=== PATIENT | male | born 1960 | race Caucasian/White ===

== ENCOUNTER → 2018-09-28 09:14 | Day surgery (SDC) | payer BC, OTHER ==
[~2018-09-28 09:14] MED LIST: Buffered Lidocaine 1% SYRIN* 1 ML/SYRINGE INTRADERM ONE; Bupivacaine 0.25% W/EPI* 10 ML SDV ONE; Bupivacaine 0.5% W/EPI SDV* 30 ML VIAL ONE; Dexamethasone IV* 4 MG/ML 1 ML (4 MG) IV SLOW PU ONE; Dexamethasone IV* 4 MG/ML 1 ML (4 MG) ONE; Famotidine IV* 10 MG/ML 2 ML (20 mg) IV ONE; Famotidine IV* 10 MG/ML 2 ML (20 mg) ONE; Ketorolac INJ* 30 MG/ML 1 ML VIAL ONE; Lactated Ringers 1000 ML Bag* 1,000 ML IV SCH; Lidocaine 1% INJ* 10 MG/ML 30 ML SDV ONE; Midazolam* 1 MG/ML 5 ML VIAL (5 MG) ONE; Naloxone* 0.4 MG/ML 1 ML VIAL IV PRN; Ondansetron INJ* 2 MG/ML VIAL ONE; Propofol* 10 MG/ML 20 ML BTL ONE; ceFAZolin 2 GM PREMIX in ORs 2 GM/50 ML BAG IVPB ONE; fentaNYL* 50 MCG/ML 2 ML VIAL (100 MCG VIAL) ONE
--- NOTE | 2018-09-28 12:17 | OP ---
CC: Dr. Slick Mckeon; Mireille Jaimes NP OPERATIVE REPORT: DATE OF OPERATION: 09/28/18 DATE OF : 58 SURGEON: Slick Mckeon MD MEDICAL SECRETARY: None. ANESTHESIA: LMAC anesthesia. ANESTHESIOLOGIST: Dr. Loco. PRE-OP DIAGNOSIS: Umbilical hernia. POST-OP DIAGNOSIS: Umbilical hernia. OPERATIVE PROCEDURE: Open repair of umbilical hernia with mesh. DESCRIPTION OF PROCEDURE: The patient was supine on the operating room table. After adequate intrave nous sedation, compression stockings, Valdo Hugger warmer, and intravenous antibiotics, the abdomen wa s prepped with antiseptic, draped in a sterile fashion. Local infiltrative anesthesia was administer ed. Supraumbilical curvilinear incision approximately 2.5 cm was created and carried down to the her nayeli, which was dissected free and reduced. The hernia defect was just about 2 cm across and the prep eritoneal plane was developed and a 4 cm underlay patch was sutured up in 4 quadrants and the fascia was closed over top. The umbilical skin was tacked back down with 0 Vicryl and the adipose with 3-0 Vicryl and skin with 5- 0 Vicryl followed by Steri-Strips. He tolerated the procedure well, was awak ened and brought to Recovery in good condition. No complications. No drains. No pathologic specime ns. Sponge and instrument counts were correct. Estimated blood loss is 20 mL. [id number]/[facility] #: [id number]
[2018-09-28 12:44] VITALS: BP 131/80
== END | disposition home or self-care (01) ==
LOC: OR 09:14
PROVIDERS: ATTEND Surgery
DX: K42.9 Umbilical hernia without obstruction or gangrene (principal)
CPT/HCPCS: C1781; J0690; J1100; J1885; J2250; J2405; J2704; J3010

== ENCOUNTER 2019-04-16 20:10 | Emergency (ER) | payer BC, OTHER ==
[2019-04-16 20:23] VITALS: BP 146/86
[2019-04-16] MEDS ORDERED: Amoxicillin/Clavulanate TAB* 875 MG PO ONE (20:29)
[2019-04-16] MEDS ORDERED: Tetan/Diph/Pertus SYR(Tdap)* 0.5 ML SYR(BOOSTRIX) use SYR IM ONE (20:29)
--- NOTE | 2019-04-16 20:30 | UC ---
Skin Complaint HPI - HPI Summary HPI Summary: 58 yo male presents with RIGHT hand puncture wound. He tells me that he is a li and around noon today he was taking down a piece of board that had nails sticking out of it and one of the nail punctured his right hand. He removed it in one piece. Since that time has had swelling and increased pain. He believes his last tetanus shot was 9 or 10 years ago. Denies fever. He also tells me about a wound on the bottom of his right foot. He had a wound and blister here many months ago that healed into a callus. Since healing, he has some tenderness to the area with weight bearing. Has not tried anything OTC for this. - History of Current Complaint Chief Complaint: UCWounds Time Seen by Provider: 04/16/19 20:18 Stated Complaint: PUNCTURE WOUND Hx Obtained From: Patient Onset/Duration: Gradual Onset Onset Severity: Mild Current Severity: Moderate Pain Intensity: 6 Pain Scale Used: 0-10 Numeric - Allergy/Home Medications Allergies/Adverse Reactions: Allergies Allergy/AdvReac Type Severity Reaction Status Date / Time No Known Allergies Allergy Verified 04/16/19 20:23 PMH/Surg Hx/FS Hx/Imm Hx - Additional Past Medical History Additional PMH: None - Surgical History Surgical History: None Surgery Procedure, Year, and Place: 2006 RIGHT ACL repair. RIGHT KNEE ARTHROSCOPIC. T&A AGE 3 - Family History Known Family History: Positive: Non-Contributory - Social History Lives: With Family Alcohol Use: None Substance Use Type: None Smoking Status (MU): Never Smoked Tobacco Have You Smoked in the Last Year: No - Immunization History Most Recent Tetanus Shot: will need Review of Systems All Other Systems Reviewed And Are Negative: No Constitutional: Positive: Negative Skin: Positive: Other - Puncture wound right hand Respiratory: Positive: Negative Cardiovascular: Positive: Negative Neurovascular: Positive: Negative Musculoskeletal: Positive: Negative Neurological: Positive: Negative Psychological: Positive: Negative Physical Exam - Summary Physical Exam Summary: GENERAL: NAD. WDWN. No pain distress. SKIN: RIGHT HAND: proximal thenar region with 2mm puncture wound. Moderate edema about thenar. Slight erythema and tenderness. No streaking or drainage. RIGHT FOOT: on the foot pad there is a 2.0cm callus that is mildly TTP. No open wound or erythema. No abscess or FB appreciated NECK: Supple. Nontender. No lymphadenopathy. CHEST: No accessory muscle use. Breathing comfortably and in no distress. CV: Pulses intact. Cap refill <2seconds MSK: FROM at right wrist and thumb NEURO: Alert. PSYCH: Age appropriate behavior. Triage Information Reviewed: Yes Vital Signs: Initial Vital Signs Temp 100 F 04/16/19 20:18 Pulse 102 04/16/19 20:18 Resp 16 04/16/19 20:18 BP 146/86 04/16/19 20:18 Pulse Ox 97 04/16/19 20:18 Vital Signs Reviewed: Yes Course/Dx - Course Course Of Treatment: 1) Puncture wound right hand. tdap updated today. Will place him on augmentin. Advised to return if he develops a fever, increased pain/swelling, or streaking. -- Apply ice and take tylenol for discomfort 2) Callus to right plantar aspect foot. I suspect the depth the callus is the cause of his discomfort when weight bearing. Advised to try new footwear or OTC callus pads. Will also refer him to podiatry if his discomfort continues. - Diagnoses Provider Diagnosis: Puncture wound of right hand, Callus of foot Discharge ED - Sign-Out/Discharge Documenting (check all that apply): Patient Departure All imaging exams completed and their final reports reviewed: No Studies - Discharge Plan Condition: Stable Disposition: HOME Prescriptions: Amoxicillin/Clavulanate TAB* [Augmentin TAB 875*] 875 mg PO BID #14 tab Patient Education Materials: Puncture Wound (ED) Referrals: Mireille Jaimes [Primary Care Provider] - Aleksandr Pfeiffer DPM [Doctor of Podiatric Medicine] - As Soon As Possible Additional Instructions: If you develop a fever, increased redness/pain, streaking up your forearm, shortness of breath, chest pain, new or worsening symptoms - please call your PCP or go to the ED immediately. Your blood pressure was high at todays visit. Please see your primary provider within 4 weeks for recheck and re-evaluation. Your tetanus shot was updated today. I recommend that you call podiatry at the number below to schedule an appointment for further treatment regarding your foot sore - Billing Disposition and Condition Condition: STABLE Disposition: Home
== END 2019-04-16 20:55 | disposition home or self-care (01) ==
LOC: UCEAST 20:10
DX: S61.431A Puncture wound without foreign body of right hand, initial encounter (principal); L84 Corns and callosities; W26.8XXA Contact with other sharp object(s), not elsewhere classified, initial encounter; Y93.89 Activity, other specified; Y92.79 Other farm location as the place of occurrence of the external cause; Z23 Encounter for immunization
CPT/HCPCS: 90471; 90715; 99212; A9270-GY; G0010; G0463